=== PATIENT | female | born 1955 | race Caucasian/White ===

== ENCOUNTER 2019-01-13 19:04 | Inpatient (IN) ==
[2019-01-13 20:10] LABS: BASO# 0.03 X1000 (0.0-0.2); BASO% 0.3 % (0.0-0.8); EOS# 0.16 X1000 (0.0-0.7); EOS% 1.7 % (0.0-10.0); HEMOGLOBIN 13.1 g/dL (12.0-16.0); IMM GRAN# 0.02 X1000 (0.0-0.04); IMM GRAN% 0.2 % (0.0-0.5); LYMPH# 1.63 X1000 (1.2-3.4); MCH 31.1 PG (27-31); MCHC 33.6 g/dL (33-37); MCV 92.6 FL (81-99); MONO# 0.72 X1000 (0.11-0.59); MONO% 7.5 % (1.7-9.3); MPV 8.9 FL (7.4-10.4); NEUT# 7.02 X1000 (1.4-6.5); NEUT% 73.3 % (42.2-75.2); PLT 443 X1000 (130-400); RBC 4.21 XMIL (4.2-5.4); WBC 9.58 X1000 (4.8-10.8)
[2019-01-13 20:36] LABS: URINE SOURCE CLEAN CATCH
[2019-01-13 20:44] LABS: ALB/GLOB RATIO 1.4; ALBUMIN 4.5 g/dL (3.5-5.0); CALCIUM 10.1 mg/dL (8.8-10.2); CREATININE 1.7 mg/dL (0.5-0.9); POTASSIUM 4.3 mmol/L (3.5-5.1); TOTAL BILIRUBIN 0.43 mg/dL (0.20-1.00); TOTAL PROTEIN 7.8 g/dL (6.3-8.3)
[2019-01-13 20:49] LABS: BILIRUBIN URINE NEGATIVE (NEGATIVE); BLOOD URINE NEGATIVE (NEGATIVE); COLOR YELLOW; GLUCOSE URINE NEGATIVE (NEGATIVE); KETONE URINE NEGATIVE (NEGATIVE); LEUKOCYTES URINE MODERATE (NEGATIVE); NITRITE URINE NEGATIVE (NEGATIVE); PROTEIN URINE NEGATIVE (NEGATIVE); SP GRAVITY URINE 1.004; TURBIDITY URINE CLEAR (CLEAR); UROBILINOGEN URINE NORMAL (NORMAL)
[2019-01-13 20:51] LABS: UR EPITHELIAL CELLS <10 /HPF (<10); URINE BACTERIA NEGATIVE /HPF; URINE RBC <10 /HPF (<10); URINE WBC <10 /HPF (<10)
[2019-01-13] MEDS ORDERED: NS 1,000 ML IV ONE (23:44)
--- NOTE | 2019-01-14 01:29 | PROVIDER DOCUMENTATION ---
This chart was entered by Kaylie Montanez Scribe, acting as scribe for Erick Hector MD. HPI-Syncope/Dizziness - General Chief Complaint: Dizziness Stated Complaint: DIZZY/ABD PAIN Time Seen by Provider: 01/13/19 22:55 Source: patient Allergies/Adverse Reactions: Patient Allergies Allergy/AdvReac Type Severity Reaction Status Date / Time diazepam [From Valium] Allergy Severe RASH Verified 11/21/14 10:34 hydrocodone bitartrate * Allergy RASH Verified 05/12/14 16:23 [From Lortab] Home Medications: Home Medication List Medication Instructions Recorded Confirmed Last Taken Type Ascorbic Acid/Vitamin E/Biotin 1 each PO BID 05/12/14 11/16/14 11/15/14 09:00 History [Hair Skin Nails-Biotin Gummies] Calcium 500 mg PO DAILY 05/12/14 11/16/14 11/15/14 09:00 History Cranberry Fruit Extract/Vit C [Azo 1 each PO BID 05/12/14 11/16/14 11/15/14 09:00 History Cranberry Softgel] Docusate Sodium [Stool Softener] 100 mg PO DAILY 05/12/14 11/16/14 11/15/14 09:00 History Esomeprazole [Nexium] 40 mg PO DAILY 05/12/14 11/16/14 11/15/14 09:00 History Glucosamine/D3/Boswellia Emilee 1 each PO DAILY 05/12/14 11/16/14 11/15/14 09:00 History [Osteo Bi-Flex Caplet] Estrogen,Polina/Me-Testosterone 1 each PO DAILY 11/15/14 11/16/14 11/15/14 09:00 History [Covaryx H.s. Tablet] Multivitamin [Multivitamins] 1 each PO DAILY 11/15/14 11/16/14 11/15/14 09:00 History Sulindac 200 mg PO DAILY 11/15/14 11/16/14 11/15/14 09:00 History - History of Present Illness-Syncope/Dizzy Nature of Presenting Problem: pt is a 63 yr old female presenting with complaint of dizziness, shortness of breath onset 1100 this AM, pt also reports mid-sternal chest pressure, pt seen at [facility] today for same. - Dizziness Severity in ED: reports: mild Dizziness Related Current/Associated Symptoms: reports: lightheaded. denies: headache Any recent trauma/injury?: reports: none Modifying Factors: improves with: nothing Patient usually:: reports: walks without assistance Review of Systems - Adult - REVIEW OF SYSTEMS - ADULT Constitutional: denies: chills, fever Eyes: denies: blurred vision, double vision Ears, Nose, Mouth & Throat: denies: ear pain, sinus problem, throat pain Cardiovascular: reports: chest pain. denies: palpitations, syncope Respiratory: reports: shortness of breath. denies: cough Gastrointestinal: denies: abdominal pain, diarrhea, nausea, vomiting Genitourinary: reports: no symptoms reported Musculoskeletal: denies: back pain, muscle aches, neck pain Integumentary: reports: no symptoms reported Neurological: denies: dizziness/vertigo, headache/migraines Psychiatric: reports: no symptoms reported Endocrine: reports: no symptoms reported Hematologic/Lymphatic: reports: no symptoms reported Allergic/Immunologic: reports: no symptoms reported All Other Systems: Reviewed and Negative Past History - Adult - PAST MEDICAL HISTORY-ADULT Review of Records: reports: Old Records Reviewed, Nursing Assessment Review, Medications Reviewed, Social history reviewed & non-contributory. Major Childhood Illnesses: reports: denies history Cardiovascular: reports: denies history Respiratory: reports: denies history Gastrointestinal: reports: denies history Obstetrical/Gynecological: reports: denies history Genitourinary: reports: denies history Musculoskeletal: reports: denies history Neurological: reports: denies history Endocrine/Immune: reports: denies history Other Conditions: reports: denies history - IMMUNIZATION STATUS Childhood Immunizations: See Nurse Assessment Flu Vaccine: See Nurse Assessment - FAMILY HISTORY Family History: reviewed, not pertinent - SOCIAL HISTORY Smoking: denies Substance Use: denies Living Situation: family Physical Exam-General - PHYSICAL EXAM-ADULT Initial Vital Signs Reviewed: Yes - CONSTITUTIONAL General Appearance: appears well, alert, no apparent distress - EYES Eyes: PERRL/EOMI - HEAD, EARS, NOSE, MOUTH & THROAT HENMT: normocephalic/atraumatic, moist mucous membranes, normal ENT inspection - NECK Neck: non-tender, full range of motion, supple, normal inspection - RESPIRATORY Respiratory: chest non-tender, lungs clear, normal breath sounds, no respiratory distress - CARDIOVASCULAR Cardiovascular: normal peripheral pulses, regular rate, rhythm, no edema - GASTROINTESTINAL (ABDOMEN) Abdominal Exam: normal bowel sounds, non tender, soft - LYMPHATIC Lymphatic: no adenopathy - MUSCULOSKELETAL Back Exam: normal inspection, no CVA tenderness, no vertebral tenderness Extremity: normal range of motion, non-tender, normal gait, normal inspection - SKIN Integumentary: normal color, normal turgor, warm/dry - NEUROLOGIC Neurologic: grossly normal, no motor/sensory deficits - PSYCHIATRIC Psych/Mental Status: normal mood/affect Progress - PLAN OF CARE/RESULTS Progress/Plan/Lab Results: Vital Signs - 8 hr 01/13/19 19:29 01/13/19 21:22 01/13/19 22:49 Temperature 98.3 F 97.7 F Pulse Rate 101 H 89 Respiratory Rate 16 16 Blood Pressure 115/79 104/58 126/66 O2 Sat by Pulse Oximetry 100 100 99 01/13/19 22:50 01/13/19 23:01 01/13/19 23:10 Temperature Pulse Rate Respiratory Rate Blood Pressure 131/69 O2 Sat by Pulse Oximetry 99 100 97 01/13/19 23:16 01/13/19 23:20 01/13/19 23:30 Temperature Pulse Rate Respiratory Rate Blood Pressure 125/79 O2 Sat by Pulse Oximetry 98 100 98 01/13/19 23:31 01/13/19 23:41 Temperature Pulse Rate Respiratory Rate Blood Pressure 114/73 O2 Sat by Pulse Oximetry 98 96 Laboratory Results - last 24 hr 01/13/19 01/13/19 01/13/19 19:55 19:55 20:12 WBC 9.58 RBC 4.21 Hgb 13.1 Hct 39.0 MCV 92.6 MCH 31.1 H MCHC 33.6 RDW Std Deviation 13.0 Plt Count 443 H MPV 8.9 Immature Gran % (Auto) 0.2 Neut % (Auto) 73.3 Lymph % (Auto) 17.0 L [place] % (Auto) 7.5 Eos % (Auto) 1.7 Baso % (Auto) 0.3 Immature Gran # (Auto) 0.02 Neut # (Auto) 7.02 H Lymph # (Auto) 1.63 [place] # (Auto) 0.72 H Eos # (Auto) 0.16 Baso # (Auto) 0.03 Sodium 137 Potassium 4.3 Chloride 97 L Carbon Dioxide 25 Anion Gap 15 BUN 28 H Creatinine 1.7 H Estimated GFR/1.73 m2 30 BUN/Creatinine Ratio 16 Glucose 95 Calculated Osmolality 279 Calcium 10.1 Total Bilirubin 0.43 AST 25 ALT 20 Alkaline Phosphatase 208 H Total Protein 7.8 Albumin 4.5 Globulin 3.3 Albumin/Globulin Ratio 1.4 Lipase 33 Urine Source CLEAN CATCH Urine Color YELLOW Urine Turbidity CLEAR Urine pH 5.0 Ur Specific [place] 1.004 Urine Protein NEGATIVE Ur Glucose (Stick) NEGATIVE Ur Ketones (Stick) NEGATIVE Urine Blood NEGATIVE Urine Nitrite NEGATIVE Urine Bilirubin NEGATIVE Urobilinogen Dipstick NORMAL Urine Leukocytes MODERATE A Urine WBC (Auto) <10 Urine RBC (Auto) <10 U Epithel Cells (Auto) <10 Urine Bacteria (Auto) NEGATIVE Orders Category Date Time Status NPO Diet 01/13/19 19:37 Active CBC WITH DIFF [HEME] Stat Lab 01/13/19 19:55 Completed COMPREHENSIVE METABOLIC PANEL [CHEM] Stat Lab 01/13/19 19:55 Completed LIPASE [CHEM] Stat Lab 01/13/19 19:55 Completed URINALYSIS [URINALYSIS] Stat Lab 01/13/19 20:12 Completed 0.9% Sodium Chloride Inj [Ns] 1,000 ml Med 01/13/19 23:44 Discontinued IV 999 mls/hr Abd Pain/OB <20 weeks Stat Oth 01/13/19 19:36 Ordered EKG [EKG] Stat Ther 01/13/19 19:38 Ordered Result Diagrams: 01/13/19 19:55 01/13/19 19:55 - EKG 1 Time of EKG reading by physician:: 19:45 EKG Read and Signed by:: Erick Hector EKG Interpretation (*Must complete 3 of following elements*): Abnormal (inferior infarct-age undetermined) Rate: 106 Rhythm: sinus tachycardia Trosper: normal QRS: other (low voltage QRS) ID Interval: normal ST Wave: normal Departure - Departure Date of Disposition Decision: 01/14/19 Time of Disposition Decision: 01:29 DIAGNOSIS: SUZETTE (acute kidney injury) Disposition: ADMITTED INPATIENT 09 Certified Medical Emergency: Emergent Condition: Stable Referrals and Follow-Ups: Miladis Guerrero MD [Primary Care Provider] - - Critical Care Note This patient required my direct & personal management of CC.: No Attestation - Physician/ XENA Attestation Patient care was provided by Advanced Practice Provider:: No The physician spent face to face time with patient:: Yes Advanced Practice Provider documentation review:: Supervising physician onsite and consulted in the evaluation and care of this patient. The physician did have a face to face encounter with the patient. This chart was documented by the indicated scribe, (Kaylie Montanez, Gabriel) and accurately reflects the services I performed and decisions made by me, Erick Hector MD, as attested by the provider's signature.
[2019-01-14] MEDS ORDERED: G.I. COCKTAIL PO ONE (02:02)
--- NOTE | 2019-01-14 03:10 | HISTORY AND PHYSICAL ---
PRIMARY CARE PHYSICIAN: Miladis Guerrero MD. REASON FOR ADMISSION: A 1-day history of lightheadedness and weakness. HISTORY OF PRESENT ILLNESS: Ms. Daniela Catalan is a 63-year-old woman with a past medical history of hypertension and anxiety disorder. She states that she has been doing rather well up until about 11:00 a.m. yesterday when she started feeling lightheaded, worse when she tried to ambulate. She said her gait was unsteady, and she also had difficulty focusing at work. She denied any palpitations, any shortness of breath, but did state that later on she developed substernal pressure-like sensation. She said this pain was constant, not related to any meals, nonradiating. Currently this symptom has slowly subsided, but still present. She denies any palpitations, any antecedent leg swelling, PND or orthopnea. No cough, fever or chills. No vomiting, diarrhea or blood loss from any orifice. No diaphoresis. No change in her home medications. No over-the- counter use of any medications including NSAIDS. REVIEW OF SYSTEMS: Twelve system review was done. Pertinents are as in the HPI. The patient went to [facility] where they noticed that her blood pressure was 96/68, heart rate of 101 and referred her to the ER. The patient has since received a bolus of normal saline, feels a little better. Blood pressure is now 114/73, heart rate 89, respirations 16, temperature is 97.7. ALLERGIES: To hydrocodone and Valium. HOME MEDICATIONS: She is on Meloxicam 15 mg daily, gabapentin 300 mg b.i.d., omeprazole 40 mg daily, Paxil 75 mg daily, Prinzide 20/12.5 mg daily, Singulair 10 mg daily, Tizanidine 4 mg daily. SURGICAL HISTORY: Notable for hemorrhoidectomy, inguinal hernia repair, hysterectomy, gastric bypass, and knee surgery. FAMILY HISTORY: Notable for heart disease and type 2 diabetes in first-degree relatives. SOCIAL HISTORY: She does not smoke, drink or use drugs. She lives alone. LABORATORY DATA: Urinalysis is positive for leukocytes. BUN is 20, creatinine 1.7 up from 0.8, alkaline phosphatase 208. White count 9000, H H 13 and 39, platelets 443,000. EKG was done and is pending at this time. Troponin is also pending. PHYSICAL EXAMINATION: VITAL SIGNS: As per HPI. O2 saturation is 96% on room air. GENERAL: A pleasant middle-aged woman who is in no acute distress. She is A and O x3 with normal mood and affect. HEENT: Head is normocephalic and atraumatic. Eyes: OLEKSANDR. EOMI. She is anicteric, not pale. ENT exam with mildly moist oral mucosa. Skin turgor is diminished. NECK: Supple. No JVD or carotid bruit. No thyromegaly. CHEST: Clear to auscultation. Good air entry in both lung navarro. CARDIOVASCULAR: First and second heart sounds are heard. No gallops, murmurs or rubs. Rhythm is regular. ABDOMEN: Shows mild epigastric tenderness, but no rebound or guarding. No masses or organomegaly. RECTAL: Examination is deferred at this time. EXTREMITIES: The patient has good distal pulse volumes, regular, symmetrical. No edema, clubbing or peripheral cyanosis. NEUROLOGICAL: No gross focal deficits or asterixis. SKIN: Intact with no breakdown, lesions or erythema. MUSCULOSKELETAL: Exam is grossly normal. ASSESSMENT: 1. Acute kidney injury probably secondary to a combination are poor oral intake with concomitant use of non-steroidal antiinflammatory drugs, angiotensin-converting enzyme inhibitor and diuretics. 2. History of hypertension. 3. Anxiety disorder. 4. Pyuria. PLAN: 1. The patient will continue with IV hydration to get the patient's blood pressure at least greater than 110. The patient informs me that she has lost 20-30 pounds over the last few months. I do believe that the patient may have obtained some degree of normotension. Thus, continuous use of SAMINA inhibitor and HCTZ may have tipped her into SUZETTE, in addition to the use of NSAIDs. We will repeat BMP in 24 hours to see which direction the patient's renal function is going. Urine indices have been ordered to see if the patient has underlying prerenal etiology, although I suspect this is primarily renal in nature. A renal sonogram was done to rule out the remote possibility of obstructive process, although I still think this is primarily renal. 2. We will discontinue blood pressure medications indefinitely or to further notice. If the patient is still a little drowsy or groggy may suggest withholding or decreasing the dose of Paxil or Neurontin. The patient has a very small dose of Paxil, but Paxil has a very short half-life and we do not want to run the risk at this point in time of SSRI withdrawal. cc: MD Miladis Live MD
[2019-01-14] MEDS ORDERED: ZOFRAN IV PRN (04:00)
[2019-01-14] MEDS ORDERED: TYLENOL PO PRN (04:00)
[2019-01-14] MEDS ORDERED: MELATONIN PO ONE (04:08)
[2019-01-14] MEDS: NS 1,000 ML IV SCH ×3 (04:34→18:19)
[2019-01-14 06:36] LABS: UR CREAT RANDOM 43.4 mg/dL (11-20)
[2019-01-14] MEDS ORDERED: PATIENT'S OWN MED PO SCH (09:00)
[2019-01-14] MEDS: NEURONTIN PO SCH ×2 (09:16→20:31)
--- NOTE | 2019-01-14 10:51 | Diag Imaging Result Doc PS360 ---
EXAM: US RENAL 2 (RETROPER) COMPLETE HISTORY: SUZETTE TECHNIQUE: Real-time transabdominal evaluation of the kidneys and bladder. COMPARISON: None. FINDINGS: Right kidney: 10.3 centimeters in length. Renal echotexture is normal. There is no hydronephrosis, nephrolithiasis, or focal renal mass. Left kidney: 9.8 centimeters in length. Renal echotexture is normal. There is no hydronephrosis or nephrolithiasis. Visualization is markedly limited due to body habitus. There is a potential mass versus lobulation mid left kidney measuring 5.2 cm. Recommend further evaluation with cross-sectional imaging. Bladder: No focal abnormality is appreciated. IMPRESSION: Limited study due to body habitus. Possible left renal mass measuring up to 5.2 cm. Recommend further evaluation with cross-sectional imaging. Electronically signed by Maylin Hill 01/14/2019 10:48 AM
[2019-01-14] MEDS ORDERED: PROTONIX PO ONE (13:03)
--- NOTE | 2019-01-14 13:47 | EKG Report ---
Test Performed on : 01/13/2019 7:43:42 PM Test Reason : dizzy Blood Pressure : / mmHG Vent. Rate : 106 BPM Atrial Rate : 106 BPM P-R Int : 146 ms QRS Dur : 074 ms QT Int : 320 ms P-R-T Axes : 011 -16 018 degrees QTc Int : 425 ms Sinus tachycardia. Low voltage QRS Inferior infarct , age undetermined Abnormal ECG When compared with ECG of 12-MAY-2014 16:16, Vent. rate has increased BY 42 BPM Inferior infarct is now present Unconfirmed Result
--- NOTE | 2019-01-14 13:58 | PROGRESS NOTE ---
DATE: 01/14/2019 SUBJECTIVE: This morning Ms. Catalan refers to be feeling a lot better. She does not have any more headache. No lightheadedness. She still did have some epigastric discomfort. OBJECTIVE: Vital signs: Blood pressure is 104/43, pulse of 74, respirations 12, and temperature 98.6 degrees. General: Ms. Catalan is a 63-year-old female. She is in bed in no distress. Mucosa is pink and slightly dry. Anicteric. Acyanotic. Neck: Supple. Chest: Clear to auscultation. No crepitations. No rhonchi. Cardiovascular: Regular rate and rhythm. There is a 2/6 murmur. There is also a pronounced S1. GI: Abdomen is soft, minimally tender in the epigastrium. No rebound or guarding. Bowel sounds are present. Extremities: No pedal edema. STACKER DRIVER: Patient is awake, alert, and oriented. There is no focal neurological deficit. LABORATORY: Data from yesterday has been reviewed. Creatinine is 1.7 which is new. CURRENT MEDICATIONS: Have also been reviewed. IMAGING STUDIES: An ultrasound this morning showed a left renal mass which is measuring up to 5.2. ASSESSMENT: 1. Clinical volume depletion. The patient is on IV fluids. 2. Acute kidney injury secondary to a combination of volume depletion and medication induced medications. Possible medications have all been discontinued. We will avoid any nephrotoxin. 3. History of hypertension, currently stable. 4. Anxiety disorder. 5. Lightheadedness and giddiness, likely due to volume depletion and dehydration resolved. 6. Left renal mass. Ultrasound this morning has shown a 5.2 renal mass. Other imaging modalities have been suggested. Currently, creatinine is 1.7, which we think is an acute insult. We are going to continue with the hydration and repeat a creatinine. If the creatinine is normalized, then we will do a CT scan of the abdomen with contrast tomorrow. 7. Epigastric discomfort likely related to GERD. Omeprazole. The patient is on omeprazole at home, which also has a potential to cause interstitial nephritis and renal abnormalities. That has been discontinued, and we will use the pantoprazole. cc: Francisco Sanz MD
[2019-01-14] MEDS: CARAFATE PO SCH (20:32)
[2019-01-14] MEDS ORDERED: MELATONIN PO PRN (20:47)
[2019-01-15] MEDS: NS 1,000 ML IV SCH ×2 (01:22→06:11)
[2019-01-15 05:14] VITALS: BP 108/48
[2019-01-15 06:38] LABS: BASO# 0.04 X1000 (0.0-0.2); BASO% 0.9 % (0.0-0.8); EOS# 0.22 X1000 (0.0-0.7); EOS% 4.7 % (0.0-10.0); HEMATOCRIT 32.9 % (37.0-47.0); HEMOGLOBIN 10.7 g/dL (12.0-16.0); LYMPH# 1.58 X1000 (1.2-3.4); LYMPH% 33.8 % (20.5-51.1); MCHC 32.5 g/dL (33-37); MCV 95.4 FL (81-99); MONO# 0.45 X1000 (0.11-0.59); MONO% 9.6 % (1.7-9.3); MPV 9.2 FL (7.4-10.4); NEUT# 2.38 X1000 (1.4-6.5); PLT 338 X1000 (130-400); RBC 3.45 XMIL (4.2-5.4); RDW 12.9 % (11.5-14.5); WBC 4.67 X1000 (4.8-10.8)
[2019-01-15 06:45] LABS: AGAP 7; BUN 12 mg/dL (8-22); CALCIUM 8.6 mg/dL (8.8-10.2); CHLORIDE 111 mmol/L (98-107); COSMO 283; CREATININE 0.8 mg/dL (0.5-0.9); ESTIMATED GFR > 60; GLUCOSE 95 mg/dL (70-104); POTASSIUM 4.4 mmol/L (3.5-5.1); SODIUM 142 mmol/L (136-145); TCO2 24 mmol/L (25-35)
[2019-01-15] MEDS ORDERED: PROTONIX PO SCH (07:00)
[2019-01-15] MEDS: CARAFATE PO SCH (10:04)
[2019-01-15] MEDS: NEURONTIN PO SCH (10:04)
--- NOTE | 2019-01-15 10:19 | Diag Imaging Result Doc PS360 ---
EXAM: CT ABD/PELVIS W/IV CONT ONLY 01/15/2019 HISTORY: renal mass TECHNIQUE: This exam was performed using automated exposure control, adjustment of mA or kV according to patient size, and/or use of iterative reconstruction technique. COMMENT: There are no previous studies available for comparison. There is some dependent atelectasis in both lower lobes. There has been apparent gastric bypass. There has been cholecystectomy. The aorta is not distended. There is some atherosclerotic calcification. The mesenteric and renal arteries are patent. The portal vein is patent. There is some retained solid material within the gastric body and fundus. There is stool in the colon. The small bowel is not distended. There is no evidence of significant adenopathy. There are numerous granulomata in the spleen. The adrenal glands are not enlarged. The kidneys are without evidence of hydronephrosis mass or stones. In retrospect, the mass which was demonstrated on ultrasound on 01/14/2019 is apparently related to normal lobulation of the mid portion of the left kidney. Pelvis: The appendix is normal in appearance. There is stool throughout the rectosigmoid colon. The urinary bladder is unremarkable. There is no evidence of free fluid. There has been hysterectomy. There is vacuum joint phenomenon in both sacroiliac joints. There are severe degenerative facet disease, particularly at the L4-5 level. No evidence of acute bony disease is present. IMPRESSION: No evidence of renal mass. Constipation. Other nonacute findings as described above. Electronically signed by Terrence Cunningham 01/15/2019 10:16 AM
--- NOTE | 2019-01-16 18:29 | DISCHARGE SUMMARY ---
ADMISSION DATE: 01/13/2019 DISCHARGE DATE: 01/15/2019 DISPOSITION: Home. FOLLOWUP: The patient's PCP, Dr. Guerrero. CONSULTATION DURING THIS ADMISSION: None. INVASIVE PROCEDURES DONE DURING THIS ADMISSION: None. IMAGING STUDIES OF SIGNIFICANCE: A renal ultrasound was done which showed a possible left renal mass measuring 5.[address] scan of the abdomen and pelvis with contrast showed no evidence of renal mass; there was some constipation. ADMISSION DIAGNOSES: 1. Acute kidney injury. 2. Hypertension. 3. Pyuria. DIAGNOSES AT THE TIME OF DISCHARGE: 1. Clinical volume depletion, improved. 2. Acute kidney injury secondary to clinical volume depletion, resolved. 3. History of hypertension, stable. 4. Anxiety disorder. 5. Gastroesophageal reflux disease. 6. Lightheadedness and giddiness, likely due to volume depletion, resolved. 7. Left renal mass on ultrasound. However, after CT scan exam, this was ruled out and there was no mass. DISCHARGE MEDICATIONS: 1. Gabapentin 300 b.i.d. 2. Montelukast. 3. Pantoprazole 40 mg daily. 4. Melatonin 10 mg p.o. at bedtime. 5. Carafate 1 g b.i.d. 6. Paroxetine 1 tablet daily. MEDICATIONS THAT HAVE BEEN WITHHELD: Lisinopril/hydrochlorothiazide has been withheld for now because of borderline normal to low blood pressure readings and also recent renal injury. Meloxicam has also been discontinued for the same reason. The patient is advised to follow up with her primary care doctor at a later date to make a decision if they would resume her antihypertensive medications. PRESENTING COMPLAINT: Lightheadedness and weakness. HISTORY OF PRESENTING COMPLAINT: Ms. Catalan is a 63-year-old female who is known to be hypertensive, who came to the emergency department because of lightheadedness and giddiness and generalized weakness. The patient was evaluated and was found to be remarkably dehydrated, and her lab work also showed creatinine was 1.7. Ms. Catalan was admitted for further medical care. HOSPITAL COURSE: Ms. Catalan was admitted to the medical floor, was adequately volume resuscitated. Her creatinine normalized overnight from 1.7 to 0.8. She felt well. During the workup, a renal ultrasound was done initially which revealed possible renal mass. A CT scan of the abdomen and pelvis with contrast was done subsequently, which came out negative. This morning, Ms. Catalan is clinically stable. She feels great. No more lightheadedness or giddiness, and her hydration status is a lot better. She was sitting up in the bed. She was eating her lunch. She is clinically stable. She is therefore going to be discharged. She is advised to follow up with her primary care doctor. Her hydrochlorothiazide/lisinopril has been withheld for now. All the discharge instructions have been discussed with her, and she voiced understanding. TIME SPENT FOR DISCHARGE: 35 minutes. cc: MD Miladis Hope MD
== END 2019-01-15 14:15 | disposition home or self-care (01) | DRG 684 ==
LOC: ED 19:04 → SUATTDRO 19:29 → EDIPHOLD 01-14 02:53 → 4N 01-14 07:32
PROVIDERS: ATTEND Internal Medicine
CPT/HCPCS: 74177; 76770; 80048; 80053; 81001; 82550; 82570; 83690; 84100; 84300; 84443; 84484; 85025; 93005; 96360; 96361; 99285; A9270; J7030; Q9967